=== PATIENT | male | born 1990 | race Hispanic/Latino ===

== ENCOUNTER 2018-10-19 04:44 | Emergency (ER) | payer SELFPAY ==
[2018-10-19 07:31] LABS: Basophils # (Auto) 0.1 K/mm3 (0.0-0.1); Basophils % (Auto) 0.7 % (0.0-1.8); Eosinophils # (Auto) 0.1 K/mm3 (0.0-0.4); Eosinophils % (Auto) 1.2 % (0.0-4.3); Hematocrit 45.4 % (35.5-45.6); Hemoglobin 14.9 gm/dl (11.8-15.2); Lymphocytes # (Auto) 1.7 K/mm3 (1.2-5.4); Lymphocytes % (Auto) 18.7 % (13.4-35.0); Mean Corpuscular HGB Conc 33 % (32-34); Mean Corpuscular Hemoglobin 29 pg (28-32); Mean Corpuscular Volume 89 fl (84-94); Monocytes # (Auto) 0.9 K/mm3 (0.0-0.8); Monocytes % (Auto) 9.8 % (0.0-7.3); Platelet Count 180 K/mm3 (140-440); Red Blood Count 5.11 M/mm3 (3.65-5.03); Red Cell Distribution Width 13.3 % (13.2-15.2)
[2018-10-19 07:40] LABS: BUN/Creatinine Ratio 10; Blood Urea Nitrogen 13 mg/dL (9-20); Calcium 9.5 mg/dL (8.4-10.2); Hemolysis Index 13
[2018-10-19] MEDS ORDERED: ALUM-MAG HYDROX-SIMETH 200-200-20MG/5ML PO ONE (10:06)
[2018-10-19] MEDS ORDERED: LIDOCAINE VISCOUS 2% PO ONE (10:06)
--- NOTE | 2018-10-19 10:11 | Emergency Department Report ---
HPI - General Chief Complaint: Chest Pain Time Seen by Provider: 10/19/18 09:55 - [facility] HPI: Room 6 The patient is a 28-year-old male presenting with a chief complaint of chest pain. Patient states he was awakened yesterday morning with sharp substernal c hest pain that has been constant but waxing and waning. Patient states that the pain increases intermittently for less than a minute and then returns to his baseline discomfort. Denies cough but admits to shortness of breath. Patient admits to slight pleurisy. Patient denies history of fever. Patient denies any recent flights or long car trips. Patient currently gives his pain a score of 2/10 Location: Chest Duration: Constant since yesterday Quality: Sharp Severity: 2/10 Modifying factors: [see above] Context: [see above] Mode of transportation: Unknown ED Past Medical Hx - Past Medical History Previous Medical History?: No - Surgical History Past Surgical History?: No - Family History Family history: no significant, other (patient states he is not aware of any family history of premature cardiac disease) - Social History Smoking Status: Former Smoker (none 2 years) Substance Use Type: Alcohol (occasional) - Medications Home Medications: Home Medications Medication Instructions Recorded Confirmed Last Taken Type Cyclobenzaprine [Flexeril] 10 mg PO TID PRN #14 tablet 10/19/18 Unknown Rx Famotidine [Pepcid] 20 mg PO BID #30 tablet 10/19/18 Unknown Rx Ibuprofen [Motrin 800 MG tab] 800 mg PO Q8HR PRN #20 tablet 10/19/18 Unknown Rx ED Review of Systems ROS: Stated complaint: CHEST PAINS Other details as noted in HPI Constitutional: denies: fever Eyes: denies: eye pain ENT: denies: throat pain Respiratory: shortness of breath, other (pleurisy) Cardiovascular: chest pain Endocrine: no symptoms reported Gastrointestinal: nausea, vomiting Genitourinary: denies: dysuria Musculoskeletal: denies: back pain Neurological: denies: headache Physical Exam - Physical Exam Vital Signs: Vital Signs 10/19/18 07:01 Temperature 98.7 F Pulse Rate 69 Respiratory 20 Rate Blood Pressure 128/79 O2 Sat by Pulse 99 Oximetry Physical Exam: GENERAL: The patient is well-developed well-nourished male lying on stretcher asleep and not appearing to be in acute distress. [] HEENT: Normocephalic. Atraumatic. Extraocular motions are intact. Patient has moist mucous membranes. NECK: Supple. Trachea midline CHEST/LUNGS: Clear to auscultation. There is no respiratory distress noted. HEART/CARDIOVASCULAR: Regular. There is no tachycardia. There is no gallop rub or murmur. ABDOMEN: Abdomen is soft, nontender. Patient has normal bowel sounds. There is no abdominal distention. SKIN: There is no rash. There is no edema. There is no diaphoresis. NEURO: The patient is awake, alert, and oriented. The patient is cooperative. The patient has normal speech MUSCULOSKELETAL: There is no evidence of acute injury. ED Course Vital Signs 10/19/18 07:01 Temperature 98.7 F Pulse Rate 69 Respiratory 20 Rate Blood Pressure 128/79 O2 Sat by Pulse 99 Oximetry - Reevaluation(s) Reevaluation #1: 10/19/18 Patient states he had minimal improvement with GI cocktail ED Medical Decision Making - Lab Data Result diagrams: 10/19/18 07:05 10/19/18 07:05 Laboratory Tests 10/19/18 10/19/18 10/19/18 07:05 07:05 10:10 WBC 9.0 RBC 5.11 H Hgb 14.9 Hct 45.4 MCV 89 MCH 29 MCHC 33 RDW 13.3 Plt Count 180 Lymph % (Auto) 18.7 [place] % (Auto) 9.8 H Eos % (Auto) 1.2 Baso % (Auto) 0.7 Lymph # 1.7 [place] # 0.9 H Eos # 0.1 Baso # 0.1 Seg Neutrophils % 69.6 Seg Neutrophils # 6.2 D-Dimer Sodium 140 Potassium 4.0 Chloride 96.7 L Carbon Dioxide 30 Anion Gap 17 BUN 13 Creatinine 1.3 Estimated GFR > 60 BUN/Creatinine Ratio 10 Glucose 97 Calcium 9.5 Troponin T < 0.010 < 0.010 10/19/18 10:10 WBC RBC Hgb Hct MCV MCH MCHC RDW Plt Count Lymph % (Auto) [place] % (Auto) Eos % (Auto) Baso % (Auto) Lymph # [place] # Eos # Baso # Seg Neutrophils % Seg Neutrophils # D-Dimer 163.60 Sodium Potassium Chloride Carbon Dioxide Anion Gap BUN Creatinine Estimated GFR BUN/Creatinine Ratio Glucose Calcium Troponin T - EKG Data -: EKG Interpreted by Me EKG shows normal: sinus rhythm Rate: bradycardia (57 bpm) - EKG Data When compared to previous EKG there are: previous EKG unavailable Interpretation: other (no ischemic changes seen) - Radiology Data Radiology results: image reviewed (chest x-ray) interpreted by me: Chest x-ray-no focal infiltrates, no pneumothorax - Differential Diagnosis costochondritis, PE, pleurisy, GERD, ACS Critical care attestation.: If time is entered above; I have spent that time in minutes in the direct care of this critically ill patient, excluding procedure time. ED Disposition Clinical Impression: Atypical chest pain Disposition: - TO HOME OR SELFCARE Is pt being admited?: No Does the pt Need Aspirin: No Condition: Stable Instructions: Chest Pain (ED) Additional Instructions: Return to the emergency department immediately should you develop worsening symptoms, fever, inability to tolerate food or liquid or any other concerns. Prescriptions: Cyclobenzaprine [Flexeril] 10 mg PO TID PRN #14 tablet PRN Reason: Muscle Spasm Famotidine [Pepcid] 20 mg PO BID #30 tablet Ibuprofen [Motrin 800 MG tab] 800 mg PO Q8HR PRN #20 tablet PRN Reason: Pain , Severe (7-10) Referrals: SUKUMAR BROWN MD [Staff Physician] - [facility] Days [facility] - [facility]-5 Days Time of Disposition: 11:58
[2018-10-19 12:04] VITALS: BP 137/88
--- NOTE | 2018-10-19 12:29 | XRay Report ---
FINAL REPORT EXAM: XR CHEST ROUTINE 2V HISTORY: chest pain TECHNIQUE: Frontal and lateral chest radiographs. PRIORS: None. FINDINGS: The cardiomediastinal silhouette is normal. No focal consolidation. No pleural effusion. No pneumothorax. No acute osseous abnormality. Mild thoracic scoliosis is seen. IMPRESSION: No acute cardiopulmonary process.
== END 2018-10-19 12:03 | disposition home or self-care (01) ==
LOC: ED 04:44
DX: R07.89 Other chest pain (principal); R06.02 Shortness of breath; R09.1 Pleurisy; Z87.891 Personal history of nicotine dependence
CPT/HCPCS: 36415; 71046; 80048; 84484; 85025; 85379; 93005; 93010